=== PATIENT | female | born 1995 | race African-American/Black ===

== ENCOUNTER 2023-03-17 15:30 | Emergency (ER) | payer BC, SELFPAY ==
--- NOTE | 2023-03-17 16:06 | CRLHL7_ITS ---
For Patients: As a result of the Century Cures Act, medical imaging exams and procedure reports are released immediately into your electronic medical record. You may view this report before your referring provider. If you have questions, please contact your health care provider. INDICATION: Six weeks , pelvic pain. TECHNIQUE: Ultrasound OB pelvis transabdominal and transvaginal. Real-time esquivel-scale imaging of the pelvis was performed. COMPARISON: None. FINDINGS: Intrauterine gestation: Present. Embryo present: Yes. Embryo cardiac activity: Yes. 122 beats per minute. [place] rump Length: 0.7 cm. Sonographic gestational age: 6 weeks and 4 days. Sonographic estimated due date: 11/06/2023. Yolk sac: Normal. Perigestational hemorrhage: None. Ovaries and adnexae: Unremarkable. No suspicious lesions or fluid collections. Left corpus luteum. IMPRESSION: Single viable intrauterine with an estimated gestational age of 6 weeks and 4 days. No abnormalities seen. Dictated by Jose Oneal MD @ 03/17/2023 6:00:41 PM (Electronically Signed)
[2023-03-17 16:07] VITALS: BP 123/78; PULSE 70; RESP 16; TEMP 37.2; O2SAT 100; BMI 32.9
--- NOTE | 2023-03-17 17:41 | ED_ITS ---
HPI - Abdominal Pain General Chief Complaint: Abdominal Pain Stated Complaint: 6 weeks pre has cramps Time Seen by Provider: 03/17/23 16:07 History of Present Illness HPI narrative: This 27-year-old female reports that she is 6 weeks and comes in with lower abdominal pain that began yesterday. She does not report any vaginal bleeding or discharge. She has not had any fevers. Related Data Home Medications Medication Instructions Recorded Confirmed ondansetron 4 mg disintegrating mg PO 03/17/23 tablet sumatriptan succinate 50 mg tablet PO 03/17/23 Allergies Allergy/AdvReac Type Severity Reaction Status Date / Time magnesium Allergy Unknown unknown Verified 03/05/23 13:50 compazine Allergy Severe seizures Uncoded 03/05/23 13:50 Review of Systems Status of ROS Reports: 10 or more systems reviewed and unremarkable except as noted in History and below Narrative Constitutional: No fevers, no weight gain or loss. Eyes: No discharge. No vision changes. HENT: No congestion, no sore throat, no ear pain. Cardiovascular: No chest pain, no palpitations. Respiratory: No shortness of breath, no wheezes, no cough. Gastrointestinal: No vomiting, no diarrhea. Abdominal pain as described above. Genitourinary: No dysuria, no hematuria. Musculoskeletal: Normal range of motion. Skin: No rashes, no pruritis. Neurological: No dizziness, weakness, sensory change, speech change. Endo/Heme/Allergies: No bruising or bleeding. No polydipsia. Pysch: no suicidality, no anxiety, no insomnia. All other systems reviewed and are negative. [facility] Medical History (Updated 03/17/23 @ 17:44 by James Schwartz MD) Sinusitis ?J32.9 - Chronic sinusitis, unspecified (ICD-10) Exam Narrative: Exam Narrative: Constitutional: Well-developed, well-nourished, no acute distress. HEENT: Normocephalic, atraumatic. Neck: Normal range of motion. Nontender. Supple. Heart: Regular. No murmurs. Normal rate. Intact distal pulses. Lungs: Clear to auscultation. No chest discomfort. No wheezes, rhonchi, or rales. Abdomen: Normal bowel sounds. Diffuse tenderness across the lower abdomen. No rebound tenderness. Genitalia: Deferred. Back: No midline tenderness. Normal range of motion. Extremities: Normal range of motion. No injury. Skin: Intact. No rash. Warm. No erythema or pallor. Neurologic: No altered sensation. No weakness. Alert and oriented. Psychiatric: No suicidality. No anxiety or depression. No insomnia. Nursing notes and vitals signs are reviewed. Const: Vital Signs, click to edit/add: Vital Signs - 24 hr 03/17/23 16:07 Temperature 98.9 F Pulse Rate [Right Pulse Oximeter] 70 Respiratory Rate 16 Blood Pressure [Ri ght Upper Arm] 123/78 Pulse Oximetry 100 Oxygen Delivery Me thod Room Air Course Vital Signs Vital signs: Initial Vital Signs Temperature 98.9 F 03/17/23 16:07 Temperature Source Temporal Artery Scan 03/17/23 16:07 Pulse Rate 70 03/17/23 16:07 Pulse Rhythm Regular 03/17/23 16:07 Respiratory Rate 16 03/17/23 16:07 Blood Pressure 123/78 03/17/23 16:07 Blood Pressure Mean 93 03/17/23 16:07 Blood Pressure Position Sitting 03/17/23 16:07 Pulse Oximetry 100 03/17/23 16:07 Oxygen Delivery Method Room Air 03/17/23 16:07 Vital Signs Temperature 98.9 F 03/17/23 16:07 Pulse Rate 70 03/17/23 16:07 Respiratory Rate 16 03/17/23 16:07 Blood Pressure 123/78 03/17/23 16:07 Pulse Oximetry 100 03/17/23 16:07 Oxygen Delivery Method Room Air 03/17/23 16:07 Temperature 98.9 F 03/17/23 16:07 Pulse Rate 70 03/17/23 16:07 Respiratory Rate 16 03/17/23 16:07 Blood Pressure 123/78 03/17/23 16:07 Pulse Oximetry 100 03/17/23 16:07 Oxygen Delivery Method Room Air 03/17/23 16:07 MDM - Abdominal Pain MDM Narrative Medical decision making narrative: This patient reports abdominal pain at 6 weeks gestation. An ultrasound was done for transvaginal view of her uterus and ovaries. There is evidence of a normal intrauterine . There are no other findings that explain the patient's pain. She is not having any vaginal discharge and is not likely showing signs of miscarriage at this time. She does not have rebound tenderness but does report pain in her lower abdomen. She has been having normal bowel movements. She denies having any symptoms of dysuria. I did discuss further lab and imaging options with the patient which she declined at this time in a process of shared decision making. I did make her aware of signs or symptoms that would indicate need for return and re-evaluation. She did receive a prescription for Toradol which I explained can be given in the 1st couple trimesters but should be used just for occasional use as needed. Discharge Plan Discharge Clinical Impression: , Abdominal pain Condition: Stable Additional Instructions: Take medication as needed and indicated. Follow up with MD or return if worsening symptoms occur. Prescriptions: No Action sumatriptan succinate 50 mg tablet PO ondansetron 4 mg tablet,disintegrating PO Follow Up/Referrals: Provider,Not a Local [Primary Care Provider] - Stand Alone Forms: [employer] Info Instructions
[2023-03-17 18:00] VITALS: BP 123/78; PULSE 70; RESP 16; TEMP 37.2
== END 2023-03-17 18:00 | disposition home or self-care (01) ==
PROVIDERS: Emergency Provider Emergency Medicine Emergency Medical Services
DX: R10.30 Lower abdominal pain, unspecified (principal); Z3A.01 Less than 8 weeks gestation of pregnancy
CPT/HCPCS: 36415; 76817; 84702; 99284

== ENCOUNTER 2023-03-31 08:24 | Outpatient (CLI) | payer BC, SELFPAY ==
--- NOTE | 2023-03-31 08:45 | CRLHL7_ITS ---
For Patients: As a result of the Century Cures Act, medical imaging exams and procedure reports are released immediately into your electronic medical record. You may view this report before your referring provider. If you have questions, please contact your health care provider. INDICATION: Follow-up viability COMPARISON: 03/17/2023 TECHNIQUE: Real-time esquivel-scale imaging of the pelvis was performed. FINDINGS: Sonographic imaging demonstrates a single living intrauterine gestation. The embryo demonstrates a regular cardiac rate measuring 173 beats per minute. The embryo`s crown-rump length measurement of 2.1 cm corresponds to a gestational age of 8 weeks 5 days with a sonographic due date of 11/05/2023. There is a normal-appearing yolk sac. There are no gross abnormalities noted within the embryo at this early state of development. The gestational sac has a normal appearance. There is a 1.2 x 0.5 x 0.8 cm perigestational hemorrhage. The amount of fluid within the sac appears appropriate for gestational age. The cervix is closed. The myometrium appears normal. The ovaries are of normal size. Corpus luteal cyst left ovary. There are no suspicious fluid collections noted in the cul-de-sac. IMPRESSION: Single living intrauterine measures 8 weeks 5 days and sonographic due date 11/05/2023. Inferior subchorionic hemorrhage measuring 1.2 x 0.5 x 0.8 cm. Dictated by Marquis Monsivais MD @ 03/31/2023 11:17:09 AM (Electronically Signed)
== END 2023-03-31 08:25 | disposition home or self-care (01) ==
LOC: US 08:24
PROVIDERS: Visit Provider Advanced Practice Midwife
DX: Z34.91 Encounter for supervision of normal pregnancy, unspecified, first trimester (principal); Z3A.08 8 weeks gestation of pregnancy
CPT/HCPCS: 76817; 86592; 86703; 86704; 86706; 86762; 86787; 86803; 86850; 86900; 86901; 87086; 87340; 87491; 87591

== ENCOUNTER 2023-05-27 15:08 | Outpatient (CLI) | payer OTHER, SELFPAY ==
[2023-05-27 18:32] LABS: Bacterial Vaginosis* Not Detected (No Detected)
[2023-05-27 18:33] LABS: Candida glab/krus Not Detected (No Detected); Candida species Not Detected (No Detected); Trichomonas vaginalis Not Detected (No Detected)
== END 2023-05-27 15:09 | disposition home or self-care (01) ==
PROVIDERS: Visit Provider Advanced Practice Midwife
DX: Z34.92 Encounter for supervision of normal pregnancy, unspecified, second trimester (principal); Z3A.16 16 weeks gestation of pregnancy
CPT/HCPCS: 81513; 87086; 87481; 87661

== ENCOUNTER 2023-08-15 11:15 | Outpatient (CLI) | payer MEDICAID, SELFPAY ==
[2023-08-15 11:31] VITALS: BP 128/61; PULSE 85; TEMP 36.9
--- NOTE | 2023-08-15 12:44 | PC.OBNST ---
NST Note NST Note Start: 08/15/23 11:22 Freq: ONCE Status: Active Protocol: Document 08/15/23 12:41 RAJESH (Rec: 08/15/23 12:44 RAJESH [id number]) NST Note 3 Para (# of births) 1 EDC 11/09/23 Gestational Age In Weeks & Days 27 Weeks & 5 Days Patient Presented with Complaint(s) of Decreased movement Reactive Yes Appropriate for Gestational Age Yes SELWYN Vee RN Date 08/15/23 Reactive Yes Appropriate for Gestational Age Yes SELWYN Cardenas RN Date 08/15/23 OB NST charge Yes Complete NST Note via Write Note Yes The provider's electronic signature indicates the NST is reactive/appropriate for gestational age. *Note to provider: If an addendum is required, open the patient's chart and click on the note under the Nurse/Allied Health tab.
== END 2023-08-15 12:39 | disposition home or self-care (01) ==
LOC: OB OUT 11:17 → OB 11:21
PROVIDERS: Visit Provider Advanced Practice Midwife
DX: O36.8120 Decreased fetal movements, second trimester, not applicable or unspecified (principal); Z3A.27 27 weeks gestation of pregnancy
CPT/HCPCS: 59025; G0463

== ENCOUNTER 2023-08-20 16:52 | Outpatient (CLI) | payer MEDICAID, SELFPAY | END 2023-08-20 16:53 | disposition home or self-care (01) | LOC: NFLDREF 16:54 | PROVIDERS: Visit Provider Advanced Practice Midwife | DX: Z34.83 Encounter for supervision of other normal pregnancy, third trimester (principal) | CPT/HCPCS: 86592 ==

== ENCOUNTER 2023-08-25 08:49 | Outpatient (CLI) | payer MEDICAID, SELFPAY | END 2023-08-25 08:50 | disposition home or self-care (01) | LOC: NFLDREF 08-27 07:33 | PROVIDERS: Visit Provider Advanced Practice Midwife | DX: O99.810 Abnormal glucose complicating pregnancy (principal); Z3A.28 28 weeks gestation of pregnancy | CPT/HCPCS: 82951; 82952 ==

== ENCOUNTER 2023-09-19 22:30 | Outpatient (CLI) | payer MEDICAID, SELFPAY ==
[2023-09-19] VITALS (12 sets, daily range): BP systolic 133; BP diastolic 72; PULSE 72–93; TEMP 36.7; O2SAT 97–100
[2023-09-19] MEDS: LACTATED RINGERS 1000 ML 1,000 ML 1200 ML IV (23:13)
[2023-09-19] MEDS: ONDANSETRON 2 MG/ML inj 4 MG IV (23:13)
[2023-09-20] LABS: Amnisure Rom* Negative
--- NOTE | 2023-09-20 00:53 | PM.EN ---
Chart Event Note Chart Event Note: ED Provider Dr. Franco was asked to order Ondansetron from [facility] so patient is able to discharge home with medications as this provider does not have access to this.
--- NOTE | 2023-09-20 01:01 | PC.OBNST ---
NST Note NST Note Start: 09/19/23 22:43 Freq: ONCE Status: Active Protocol: Document 09/20/23 00:56 KALEB (Rec: 09/20/23 01:00 KALEB [id number]) NST Note 3 Para (# of births) 1 EDC 11/09/23 Gestational Age In Weeks & Days 32 Weeks & 6 Days Patient Presented with Complaint(s) of Nausea and vomiting Other Complaints Patient arrived with SO and children via wheelchair c/o nausea and vomiting as well as diarrhea accompanied by contractions. Pt reported to RN that when she was having a bout of emesis she did feel some liquid leaking out of her analisa area. Amnisure was collected and negative. After 1L of fluid and IV zofran patient is feeling better. Discharge order received from Nikky Lind CNM to go home. Reactive Yes Appropriate for Gestational Age Yes SELWYN Ruggiero RN Date 09/20/23 Reactive Yes Appropriate for Gestational Age Yes SELWYN Lind CNM Date 09/20/23 OB NST charge Yes Complete NST Note via Write Note Yes The provider's electronic signature indicates the NST is reactive/appropriate for gestational age. *Note to provider: If an addendum is required, open the patient's chart and click on the note under the Nurse/Allied Health tab.
== END 2023-09-20 01:11 | disposition home or self-care (01) ==
LOC: OB OUT 22:31 → OB 22:32
PROVIDERS: Visit Provider Advanced Practice Midwife
DX: O47.03 False labor before 37 completed weeks of gestation, third trimester (principal); Z3A.32 32 weeks gestation of pregnancy
CPT/HCPCS: 59025; 84112; G0463; J2405; J7120

== ENCOUNTER 2023-10-15 14:19 | Outpatient (CLI) | payer MEDICAID, SELFPAY | END 2023-10-15 14:20 | disposition home or self-care (01) | LOC: NFLDREF 10-17 09:43 | PROVIDERS: Visit Provider Advanced Practice Midwife | DX: Z34.93 Encounter for supervision of normal pregnancy, unspecified, third trimester (principal); Z3A.36 36 weeks gestation of pregnancy | CPT/HCPCS: 87081; 87653 ==

== ENCOUNTER 2023-10-19 23:05 | Outpatient (CLI) | payer BC, MEDICAID, SELFPAY ==
[2023-10-19 23:42] VITALS: BP 125/73; PULSE 83
[2023-10-19 23:43] VITALS: RESP 18; TEMP 36.8
[2023-10-19 23:56] LABS: Amnisure Rom* Negative
--- NOTE | 2023-10-20 00:39 | PC.OBNST ---
NST Note NST Note Start: 10/19/23 23:06 Freq: ONCE Status: Active Protocol: Document 10/20/23 00:37 AM (Rec: 10/20/23 00:39 AM [id number]) NST Note 3 Para (# of births) 1 EDC 11/09/23 Gestational Age In Weeks & Days 37 Weeks & 1 Days Patient Presented with Complaint(s) of Contractions/cramping,Leaking fluid Reactive Yes Appropriate for Gestational Age Yes RN Trevon RNC Date 10/20/23 Reactive Yes Appropriate for Gestational Age Yes RN Sofi RN Date 10/20/23 OB NST charge Yes Complete NST Note via Write Note Yes The provider's electronic signature indicates the NST is reactive/appropriate for gestational age. *Note to provider: If an addendum is required, open the patient's chart and click on the note under the Nurse/Allied Health tab.
== END 2023-10-20 00:25 | disposition home or self-care (01) ==
LOC: OB OUT 23:05 → OB 23:06
PROVIDERS: Visit Provider Advanced Practice Midwife
DX: O47.1 False labor at or after 37 completed weeks of gestation (principal); Z3A.37 37 weeks gestation of pregnancy
CPT/HCPCS: 59025; 84112; G0463

== ENCOUNTER 2023-10-20 19:33 | Outpatient (CLI) | payer BC, SELFPAY ==
[2023-10-20] MEDS: ACETAMINOPHEN 500 MG TABLET 1000 MG PO (19:56)
[2023-10-20 20:06] VITALS: BP 136/85; RESP 16; TEMP 36.6
[2023-10-20 20:07] VITALS: PULSE 82; O2SAT 98
[2023-10-20 20:08] LABS: Hematocrit 36.5 % (33.0-51.0); Mean Corpuscular HGB Conc 33 gm/dL (32-36); Mean Corpuscular Hemoglobin 28 pg (26-34); Mean Corpuscular Volume 85 fL (80-100); Platelet Count* 234 K/uL (140-440); Red Blood Count 4.28 m/uL (4.00-5.20); White Blood Count* 6.79 K/uL (4.50-11.00)
[2023-10-20 20:22] LABS: Slide Review Reflex No
[2023-10-20 20:32] LABS: Alanine Aminotransferase* 26 U/L (4-35); Aspartate Amino Transferase* 24 U/L (12-35); Blood Urea Nitrogen* 6 mg/dL (5-24); Creatinine* 0.4 mg/dL (0.5-1.5); Estimated Glomerular Filt Rate 138 ml/min
[2023-10-20 20:35] LABS: Total Protein Urine 10 mg/dL
[2023-10-20 20:37] LABS: Creatinine Urine 50.3 mg/dL
[2023-10-20 20:44] VITALS: BP 125/81
[2023-10-20] MEDS: METOCLOPRAMIDE 10 MG TABLET PO (21:00)
[2023-10-20 21:21] VITALS: BP 121/79
--- NOTE | 2023-10-24 10:26 | PC.OBNST ---
NST Note NST Note Start: 10/20/23 19:37 Freq: ONCE Status: Complete Protocol: Document 10/20/23 21:47 [email or web address] (Rec: 10/20/23 21:49 KALEB Desktop) NST Note 3 Para (# of births) 1 EDC 11/09/23 Gestational Age In Weeks & Days 37 Weeks & 1 Days Patient Presented with Complaint(s) of Headache Other Complaints Pt sent to center by Sarahy Sal for pre-e labs and serial blood pressures. Reactive Yes Appropriate for Gestational Age Yes SELWYN Ruggiero RN Date 10/20/23 Reactive Yes Appropriate for Gestational Age Yes SELWYN Wong RN Date 10/20/23 OB NST charge Yes Complete NST Note via Write Note Yes The provider's electronic signature indicates the NST is reactive/appropriate for gestational age. *Note to provider: If an addendum is required, open the patient's chart and click on the note under the Nurse/Allied Health tab.
== END 2023-10-20 21:40 | disposition home or self-care (01) ==
LOC: OB OUT 19:33 → OB 19:33
PROVIDERS: Visit Provider Advanced Practice Midwife
DX: O47.1 False labor at or after 37 completed weeks of gestation (principal); Z3A.37 37 weeks gestation of pregnancy
CPT/HCPCS: 36415; 59025; 82565; 82570; 84156; 84450; 84460; 84520; 85027; G0463; A9270

== ENCOUNTER 2023-10-30 06:03 | Outpatient (CLI) | payer BC, SELFPAY ==
[2023-10-30 06:27] VITALS: BP 139/78; PULSE 89
[2023-10-30 06:32] VITALS: TEMP 36.6
[2023-10-30 06:55] LABS: Amnisure Rom* Negative
[2023-10-30] MEDS: hydrOXYzine pamoate 25 MG CAPSULE 100 MG PO (09:54)
[2023-10-30] MEDS: MORPHINE 10 MG/ML inj IM (09:55)
== END 2023-10-30 10:35 | disposition home or self-care (01) ==
LOC: OB OUT 06:03 → OB 06:05
PROVIDERS: Visit Provider Advanced Practice Midwife
DX: O26.893 Other specified pregnancy related conditions, third trimester (principal); R51.9 Headache, unspecified; Z3A.37 37 weeks gestation of pregnancy
CPT/HCPCS: 84112; G0463; A9270; J2270

== ENCOUNTER 2023-10-30 15:39 | Inpatient (IN) | payer BC, SELFPAY ==
[2023-10-30] VITALS (41 sets, daily range): BP systolic 110–159; BP diastolic 55–80; PULSE 4–230; TEMP 36.7–36.9; O2SAT 80–100; BMI 38.5
[2023-10-30] MEDS: fentaNYL 100 MCG/2 ML inj 50 MCG IVP (18:43)
[2023-10-30] MEDS: LACTATED RINGERS 1000 ML 1,000 ML IV ×2 (19:19→20:17)
[2023-10-30] MEDS: ROPIVACAINE 0.2% 100 ml 100 ML 12 MG EPIDURAL (20:00)
[2023-10-30] MEDS: BUPIVACAINE 0.25% PF 10 ML 10 ML ML EPIDURAL (20:01)
--- NOTE | 2023-10-30 20:05 | PM.ANBPRC ---
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 Lives with: and daughter Pets: [place] Abuse: Denies past Special Diet: Denies Ok with a blood transfusion: yes Culture or holiness beliefs: denies RISK FACTORS Exercise Times/wk: home gym Depression/Anxiety: at 11-12 months BALA: 0 PHQ 9: 0 Seat Belt Use: Routinely Smoking: Denies past/present Alcohol/day: Denies while Caffeine: 1-2 cups a day Drug Use: Denies past/present Chicken Pox: Yes as a child MRSA: Denies What is your current living situation?: I presently have a place to live Problems where you live: no known problems In the past 12 months, utilities in danger of being shut off: no In past 12 months, lack of transportation kept you from medical appts, meetings, work, or getting things needed for daily living: no In the past 12 mos, have been you worried that your food would run out before you had money to buy more?: never true In the past 12 mos, the food you bought just didn't last and you didn't have money to buy more?: never true Smoking Status: Never smoker How often do you have a drink containing alcohol: never AUDIT-C Alcohol total score: 0 Non-prescribed substance use: denies use How often does anyone, including family, friends and others, physically hurt you: never How often does anyone, including family, friends and others, insult or talk down to you: never How often does anyone, including family, friends and others, threaten you with harm: never How often does anyone, including family, friends and others, scream or curse at you: never Little interest or pleasure in doing things: not at all Feeling down, depressed, or hopeless: not at all Meds Home Medications and Allergies Home Medications ?Medication ?Instructions ?Recorded ?Confirmed ?Type vits no.126-ferrous fum 1 tab PO DAILY 03/31/23 10/30/23 History 28 mg iron-folic acid 800 mcg tablet (Classic ) ferrous sulfate 325 mg (65 mg 325 mg PO DAILY 10/20/23 10/30/23 History iron) tablet (iron) Allergies Allergy/AdvReac Type Severity Reaction Status Date / Time prochlorperazine Allergy Mild Shakiness Verified 10/30/23 14:53 [From Compazine] magnesium Allergy Unknown unknown Verified 10/30/23 14:53 tree nut Allergy Unknown Hives Verified 10/30/23 14:53 Results Vital Signs Vital Signs: Last Vital Signs Pulse 112 H 10/30/23 20:04 BP 137/73 10/30/23 20:04 Pulse Ox 98 10/30/23 20:02 Weight: 101.695 kg Height: 162.56 cm Anesthesia Procedures Epidural Insertion Patient Location: OB Start Time: 19:20 Stop Time: 20:05 Start Date: 10/30/23 Stop Date: 10/30/23 Reason for Block: procedure for pain Patient Position: sitting Performed By: Yury Vogel Preanesthetic Checklist: IV checked, risks and benefits discussed, monitors and equipment checked, pre-op evaluation, timeout performed and anesthesia consent Prep: chlorhexidine gluconate Monitoring: blood pressure monitoring, continuous pulse oximetry and heart rate Approach: midline Vertebral Space: lumbar (1-5) Epidural Technique: AGNES saline Needle Type: Tuohy needle Injection Technique: continuous catheter Needle gauge: 17 Needle Length (cm): 10 cm Needle Insertion Depth (cm): 8 Catheter Gauge: 19 Catheter Type: multi-orifice Catheter at skin depth (cm): 14 Test Dose Result: negative and lidocaine 1.5% with epinephrine 1 to 200,000
[2023-10-30] MEDS: CALCIUM CARBONATE 500 MG CHEW PO (20:45)
--- NOTE | 2023-10-30 23:30 | P.LDBA_ITS ---
Subjective History of Present Illness Time Seen by Provider: 16:00 Date Seen: 10/30/23 Narrative: Solis is being admitted to Labor and Delivery for labor. She is a 28 year old at 38.4 weeks gestation. Her full history and physical was dictated by Sarahy Sal CNM on 10/20/23. Please see this for details. She presented earlier in the day. At that time she was slightly more dilated than she had been in the clinic 2 days ago but did not make cervical change in the 2 hours she was here. She was given morphine and Vistaril in an attempt to get her some sleep. She did not sleep for very long before coming back for continued contractions and pain. She was found to have made a small amount of cervical change at that time. She was admitted for labor and support. She is planning an unmedicated water . She is supported by her Richar. Specific Issues/Plans : Richar Its a boy-Yonas H&P 10/20/23 by Sarahy Sal CNM [employer] Helper: Eunice Radford 1. Migraines. Taking Imitrex, will add Reglan. MFM consult: ok to use propranolol, can consider gabapentin with shared decision making Level 2 US at 18-20 weeks Growth US Q 6 weeks if taking propranolol (not currently taking). Has Neurology F/U in June 2. Nausea and vomiting. Taking zofran. 3. Echogenic intracardiac focus. Normal NIPT. No further f/u recommended. 4. Bilateral urinary tract dilation (>7mm). F/U with MFM in 4-6 weeks-repeat scheduled. Grandfather and aunt had renal disease. Recommended US and peds urology consult after delivery. MFM US 07/22/23: Rt renal pelvis 8.5mm, Lt renal pelvis 8.2mm, MVP 5.4cm MFM US 08/20/23: per pt report (waiting for official report) Lt pelvis 11.2, Rt pelvis 7.5 Mat21 negative. Serial growth and kidneys every 4 weeks w/MFM. Follow-up ultrasound 09/16/2023: Consider Peds urology referral and consultation if persists into 3rd trimester: renal US at 8hrs of life prior to leaving the hospital if , renal US at 2 weeks of life and f/u with peds urology. 5. Failed 1 hr GTT (174), 3 hr passed but not by much. Encouraged dietary changes and random BS check. Declines nutrition at this time. 6. Anemia at 28 weeks Hgb 10.9 recommended iron supplement. Hgb 11.8 at 34wks. COVID: initial series, boosted once Flu: 04/07/2023 TDAP: 09/03/2023 32wk Mental Health: 34wk Hgb: 11.8 OB - Problem Based A/P Additional Plan (1) Pain during labor: Status: Acute (2) Dilation of renal pelvis of fetus: Status: Acute Plan ASSESSMENT:? at 38.4 weeks gestation? Spontaneous labor at term GBS negative? complicated by: Bilateral urinary tract dilation (>7mm), failed 1hr GTT but passed 3 hr test, anemia resolved by 34 weeks. Blood type:?O+ ?? PLAN:? 1. Desires water . Consent signed. Hep C negative.? 2. Candidate for analgesia of choice. Planning unmedicated .? 3. Encourage physiologic and coping strategies. 4. Anticipate ? 5. Expectant management at this time.? 6. Consider IV if desires IV pain medication for early labor coping. 7. Intermittent auscultation after reactive tracing. Delivery/Labor/Induction Plan Plan: expectant management OB Result Labs Blood Type: O (+) positive Rubella: immune RPR/VDLR: nonreactive GBS Status: negative HBsAG: negative OB Exam Physical Exam Vital signs: Pulse BP Pulse Ox 80 123/58 L 97 10/30/23 23:19 10/30/23 23:19 10/30/23 22:37 Narrative: Psychiatric:? Alert and oriented x3? HEENT:? Normocephalic, atraumatic? Neck:? Supple without adenopathy or thyromegaly? Lungs:? Clear to auscultation bilaterally? Heart:? Regular rate and rhythm, no murmur, rub or gallop? Abdomen:? Soft, nontender, and gravid? Extremities:? No edema or erythema? Detailed Labor and Delivery Exam Patient Gravid: Yes Dilation (cm): 3 Effacement (%): 70 Cervix position: posterior Consistency: soft Contraction intensity: Strong/Firm Fetus (Single) Station: -2 Amniotic Membrane Status: intact Heart Rate Baseline: 130 Monitor Accelerations: Present Monitor Decelerations: None Fci Variability: Moderate (6-25)
--- NOTE | 2023-10-30 23:41 | PM.OBPNL ---
Subjective Time Seen by Provider: 20:00 Date Seen: 10/30/23 Narrative: Solis has been slowly progressing and encouraging physiologic . She was starting to feel some rectal pressure and decided to get an epidural. She has an effective epdirual in place at this time and is comfortalbe but is still able to feel some pressure. After epidural placement she was found to be 6cm/90%/-2 with a bulging bag. She is being encouraged to change positions and take a nap as she is exhausted. Will consider AROM after she had had time to rest. 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 at 38.4 weeks gestation? Spontaneous labor at term GBS negative? Reassuring FHT with continuous monitoring after epidural placement. complicated by: Bilateral urinary tract dilation (>7mm), failed 1hr GTT but passed 3 hr test, anemia resolved by 34 weeks. Blood type:?O+ ?? PLAN:? 1. Routine intrapartum cares as ordered. Continue with expectant management ?? 2. Candidate for analgesia of choice. Epidural now in place. 3. Encourage physiologic with position changes. 4. Expectant management at this time.? 5. Monitoring per policy, continuous with epidural ? 6. Anticipate ?
[2023-10-31] VITALS (33 sets, daily range): BP systolic 120–142; BP diastolic 57–95; PULSE 68–94; RESP 16–18; TEMP 36.4–37.6; O2SAT 92–100
[2023-10-31] MEDS: ONDANSETRON 2 MG/ML inj 4 MG IV (00:07)
[2023-10-31] MEDS: LACTATED RINGERS 1000 ML 1,000 ML 1125 ML IV (00:27)
[2023-10-31] MEDS: ROPIVACAINE 0.2% 100 ml 100 ML 12 MG EPIDURAL (01:40)
[2023-10-31] MEDS: fentaNYL 100 MCG/2 ML inj 50 MCG EPIDURAL (02:00)
[2023-10-31] MEDS: LIDOCAINE 2% (PF) 5 ML VIAL 4 ML EPIDURAL (02:00)
[2023-10-31] MEDS: OXYTOCIN 30 unit/500 ML in NS 30 UNIT/500 ML BAG 300 UNIT IVPB (02:40)
--- NOTE | 2023-10-31 02:56 | W.PM.OBVAGDE ---
OB Procedure Vag Delivery Mother Details Mother Details: The patient is a 28 year-old, 2, Para 1, admitted on 10/30/23 at 38.4 Days gestation. : 2 Para: 2 Weeks Gestation: 38.5 Admission Date: 10/30/23 Additional Details Amniotic Membrane Status: AROM Amniotic Membrane Rupture Date: 10/30/23 Amniotic Membrane Rupture Time: 21:12 Amniotic Membrane Fluid Description: Clear Analgesia/Anesthesia Type: Epidural Waterbirth: No Pitcoin: Yes ([facility] only) Intrapartal Events: Labor Augmentation Delivery augmentation: rupture of membranes Labor Onset: 20:40 Complete: 00:44 Pushin:54 Heart: heart tones during second stage were category 2. Just before pushing there was a prolonged deceleration. Uncertain as to how long as there was a large period where we were unable to find FHTs until a FSE was placed. This occurred over a 5.5 min period. She continued to have recurrent variable decelerations with pushing but maintained good variable and + accels. With there was a decrease to the 60's for about 2 minutes before delivery. Delivery Details Delivery Date: 10/31/23 Delivery Time: 02:38 Route of delivery: Gender: Male Infant Viability: Alive; Heart Rate Present Position at Delivery: OA Delivery Details: Patient was admitted for labor and progressed with AROM for augmentation. AROM noted at 2112 with clear fluid. Patient was complete at 0044 and pushing at 0054. of a viable male at 0238 with tug of war in the bed. Vertex delivered OA. No shoulder. Nuchal cord x1 that was summersaulted and reduced after delivery. Body delivered easily and without incident. Infant passed to mothers abdomen with a vigorous cry. Cord was clamped and cut at about 1 minutes for lack or respiratory effort. He was brought to the warmer and given about 30 seconds of PPV before he began breathing on his own. APGARS were 5 at one minute and 9 at five minutes respectively. Mouth was bulb suctioned. Intact placenta with a 3 vessel cord delivered spontaneously at 0243. Fundus firm. An intact perineum identified and repaired in typical fashion. QBL 300 cc. Mother and baby stable; mother plans to breastfeed. Infant weight pending.? 1 Minute Interval Total Score: 5 5 Minute Interval Total Score: 9 Additional Details Shoulder Dystocia: No Placenta Delivery Time: 02:43 Placental Delivery Description: Spontaneous Procedure Done: Global Blood Loss: 300 Laceration: None Episiotomy Description: None Blood Loss Measurement Type: QBL Bakri Used: No Sponge/Need Count Correct: Yes Cord Vessel Description: 3 Vessels, Nuchal Cord and Delivered through Event Summary Status: Mother and were stable after delivery. Disposition: floor
[2023-10-31] MEDS: IBUPROFEN 600 MG TABLET PO ×3 (03:30→18:43)
[2023-10-31] MEDS: ACETAMINOPHEN 500 MG TABLET 1000 MG PO ×3 (08:18→20:49)
[2023-10-31] MEDS: DOCUSATE SODIUM 100 MG CAPSULE PO (08:19)
--- NOTE | 2023-10-31 13:20 | PM.ANPOST ---
Post Anesthesia Note Post Anesthesia Note Patient seen: Inpatient Respiratory Status: adequate Cardiovascular Status: adequate Mental Status: baseline Pain: adequate Temp: baseline Anesthetic awareness: N/A Complications: none Follow care: none
[2023-10-31] MEDS: LANOLIN CREAM 1 APPLIC TOPICAL (15:00)
[2023-11-01 01:09] VITALS: BP 126/77; PULSE 76; RESP 16; TEMP 36.8; O2SAT 97
[2023-11-01] MEDS: IBUPROFEN 600 MG TABLET PO (06:19)
[2023-11-01 08:36] LABS: Hemoglobin* 10.9 gm/dL (12.0-16.0)
--- NOTE | 2023-11-01 08:36 | PM.OBDSVD1 ---
DS: Providers Provider Time Seen by Provider: 08:30 Date Seen: 11/01/23 Date of admission: 10/30/23 15:39 Primary care physician: Not a Local Provider Admitting Clinician: Tara Sal CNM Attending Physician on discharge: Tara Sal CNM DS: Diagnosis Discharge Diagnosis (1) (normal spontaneous vaginal delivery): Status: Acute Exam Narrative: Exam Narrative: GENERAL APPEARANCE:? normal affect, alert, no distress MOOD:? appropriate CHEST:? clear to auscultation HEART:? regular rate and rhythm ABDOMEN:? soft, non-tender the uterine fundus is At Umbilicus, Midline and is appropriate for the stage of recovery. she currently has a full bladder EXTREMITIES:? normal and trace edema Const: Vital Signs, click to edit/add: Vital Signs - 24 hr 10/31/23 08:50 10/31/23 13:18 10/31/23 16:11 Temperature 97.6 F 98.0 F 98.1 F Pulse Rate [Pulse Oximeter] 68 74 91 Respiratory Rate 18 18 18 Blood Pressure [Ri ght Arm] 132/79 123/77 127/76 Pulse Oximetry 98 96 97 Oxygen Delivery Me thod Room Air Room Air Room Air 10/31/23 19:58 11/01/23 01:09 Temperature 97.8 F 98.3 F Pulse Rate [Pulse Oximeter] 85 76 Respiratory Rate 16 16 Blood Pressure [Ri ght Arm] 133/82 126/77 Pulse Oximetry 98 97 Oxygen Delivery Me thod Room Air Room Air OB - DS: Summary Hospital Course Hospital Course: Solis is a 28 y.o. G 3 P 2011 who was admitted [facility] for active labor.? She had a NVD that was uncomplicated. The patient feels well.? The pain is well controlled with current medications.? She has no new complaints.? She is breast feeding and reports things are going well. the patient has done well.? Vitals have been stable.? She has remained afebrile.? Has a good appetite, is tolerating a general diet.? She is voiding without difficulty.? She is passing gas and has not had a bowel movement.? She is ambulating and denies any dizziness.? Has small amount of rubra lochia. She did pass one golf ball size clot this morning with no increase in bleeding afterwards. She is planning depo for prevention.? ?? Problems: 1. Migraines. Taking Imitrex, will add Reglan. MFM consult: ok to use propranolol, can consider gabapentin with shared decision making Level 2 US at 18-20 weeks Growth US Q 6 weeks if taking propranolol (not currently taking). Has Neurology F/U in June 2. Nausea and vomiting. Taking zofran. 3. Echogenic intracardiac focus. Normal NIPT. No further f/u recommended. 4. Bilateral urinary tract dilation (>7mm). F/U with MFM in 4-6 weeks-repeat scheduled. Grandfather and aunt had renal disease. Recommended US and peds urology consult after delivery. MFM US 07/22/23: Rt renal pelvis 8.5mm, Lt renal pelvis 8.2mm, MVP 5.4cm MFM US 08/20/23: per pt report (waiting for official report) Lt pelvis 11.2, Rt pelvis 7.5 Mat21 negative. Serial growth and kidneys every 4 weeks w/MFM. Follow-up ultrasound 09/16/2023: Consider Peds urology referral and consultation if persists into 3rd trimester: renal US at 8hrs of life prior to leaving the hospital if , renal US at 2 weeks of life and f/u with peds urology. 5. Failed 1 hr GTT (174), 3 hr passed but not by much. Encouraged dietary changes and random BS check. Declines nutrition at this time. 6. Anemia at 28 weeks Hgb 10.9 recommended iron supplement. Hgb 11.8 at 34wks. ? ?? plan:? Discharge home with baby.? Follow up in 2 weeks and 6 weeks.? , may see if needed? Hgb pending. Iron supplement ordered orally every other day? Labs WNL or stable with trending? Discharge home with BP cuff if does not already have one? Follow up in 3-5 days? Call for signs/symptoms of preeclampsia? ? Peripartum Data Infant delivery method: Vaginal Laceration description: None Episiotomy description: None complications: none Infant Gender: Male Discharge Plan: Home Status at Discharge Overall status at discharge: patient is progressing back to baseline Time Spent with Patient Time attestation: Total time spent providing and/or coordinating discharge services: Time spent: Less than 30 minutes Discharge Plan Discharge Disposition: Home, Self-Care Date of Admission: 10/30/23 15:39 Attending Provider on Discharge: Bryanna Hill Primary Care Provider: Provider,Not a Local Condition: Stable Anticipated Discharge Date/Time: 11/01/23 11:00 Discharge Medications: New acetaminophen 500 mg Tablet 1,000 mg PO Q6H PRNQty: 60 0RF docusate sodium 100 mg Capsule 100 mg PO DAILY Qty: 60 0RF ibuprofen 600 mg Tablet 600 mg PO Q6H PRNQty: 60 0RF Continued Classic 28 mg iron- 800 mcg tablet 1 tab PO DAILY ferrous sulfate [iron] 325 mg (65 mg iron) tablet 325 mg PO DAILY Discharge Orders: Discharge Order (Routine); Ordered 11/01/23 Ordered By: Bryanna Hill Patient Education: OB Vaginal/Breast Feeding Activity Level: Activity as Tolerated Discharge Diet: Regular Follow Up Appointments: Provider,Not a Local [Primary Care Provider] - Forms: [facility] Info Instructions
[2023-11-01 09:00] VITALS: BP 131/73; PULSE 87; RESP 16; TEMP 36.8
[2023-11-01] MEDS: DOCUSATE SODIUM 100 MG CAPSULE PO (09:08)
[2023-11-01] MEDS: ACETAMINOPHEN 500 MG TABLET 1000 MG PO (09:08)
[2023-11-03 00:55] LABS: Rapid Plasma Reagin (RPR) Non Reactive (Non Reactive)
== END 2023-11-01 12:25 | disposition home or self-care (01) | DRG 560 ==
LOC: OB OUT 15:40 → OB 15:40
PROVIDERS: Admitting Provider Advanced Practice Midwife; Visit Provider Advanced Practice Midwife
DX: O35.EXX0 Maternal care for other (suspected) fetal abnormality and damage, fetal genitourinary anomalies, not applicable or unspecified (principal); O76 Abnormality in fetal heart rate and rhythm complicating labor and delivery; G43.909 Migraine, unspecified, not intractable, without status migrainosus; O99.814 Abnormal glucose complicating childbirth; O99.02 Anemia complicating childbirth; D64.9 Anemia, unspecified; Z37.0 Single live birth; Z3A.38 38 weeks gestation of pregnancy
CPT/HCPCS: 01967; 36415; 85018; 86592; A9270; J0665; J2405; J2795; J3010; J7120

== ENCOUNTER 2023-11-07 13:14 | Outpatient (CLI) | payer BC, SELFPAY ==
--- NOTE | 2023-11-07 16:15 | W.PM.LAC.MC ---
Consult Note - Mom Date of Visit Date of visit: 11/07/23 client support consultant: Luisa Saenz Visit Code: Visit Patient's Information Phone number: [phone] : 2 Para: 2 Allergies prochlorperazine [From Compazine] Allergy (Mild, Verified 10/30/23 14:53) Shakiness magnesium Allergy (Unknown, Verified 10/30/23 14:53) unknown tree nut Allergy (Unknown, Verified 10/30/23 14:53) Hives Mother's Medical History: Medical History (Updated 11/05/23 @ 00:00 by Background Daemon) Sinusitis ?J32.9 - Chronic sinusitis, unspecified (ICD-10) Delivery Information Delivery type: Vaginal Weeks Gestation: 38+5 Gestational Age: AGA Weight: 3.615 kg Discharge Weight: 3.572 kg Baby's Information Medications: None Baby's Age at Visit: 7 days Baby's Provider or Clinic: [facility] Jaundice: No Reason for Consult Reason for Consult: Baby hasn't latched to left breast since left hospital, today also wouldn't latch to right breast. Mom feeling plugged duct on left side. Past Experience Past Experience: Yes Current Frequency of Day Feedings: every 2 hours Frequency of Night Feedings: every 2 hours, maybe one 4 hr stretch last night per dad Both Breasts: Yes (attempts) Suck: strong when latches Latch: wide and deep, mom feels good when he does latch Length of Time: 20-30 minutes, usually just on the right side though Goals: at least 1 year Pumping Pumping: Yes Quantity Pumped: 2.5 oz from left side Supplementing EMB Supplement: Yes (takes 2-2.5 oz in about 10 minutes) Formula Supplement: No Baby Elimination Number of Wet Diapers a Day: 6 or more Number of BM a Day: 6 or more, yellow, seedy Breast/Nipple Condition Engorgement: Yes Interventions for Engorgement: Pump (Has a hand pump) Maternal Nipple Condition - Left: Common Nipple and Cracking/ Fissures Maternal Nipple Condition - Right: Common Nipple Sore Nipples: Yes (left side) Interventions for Sore Nipples: Lansinoh and Expressed Breast Milk Onsite Pre-Feed weight: 3.642 kg Post-Feed weight: 3.742 kg Milk Transferred (mL): 100 Pre-Nursing Left Nipple: Crusting/Scabs Pre-Nursing Right Nipple: Within Normal Limits Post-Nursing Left Nipple: Within Normal Limits Post-Nursing Right Nipple: Within Normal Limits Assessments/Interventions Assessments/Interventions: Worked with mom and baby to get baby latched using asymmetric latch technique in cross cradle position. Baby needed coaching to stay on right breast with wide, deep latch. A little fussy, but once mom had her letdown, baby nursed with a strong, rhythmic suck and lots of audible swallows. Natural pauses noted and pointed out to mom this is normal behavior in nursing . Mom reports comfortable latch. Baby nursed for 15 minutes and then got sleepy. Used same technique on left breast, and again baby needed coaching to get on left side, but stayed on for 10 minutes. Mom reported relief on left side and felt milk removal. Nipple pain tolerable after feeding. Discussed nipple care: EBM after feeding, nipple cream to heal sore on left nipple, and soothies. Discussed wide deep latch allows nipple to heal and allows more milk transfer for baby. Discussed pumping to relieve fullness if needed while having plugged ducts. Father of baby asking how to help support his with rest and nutrition so ideas shared for this with fluid and snacks while nursing and then resting as able. Time spent with mom, dad and baby: 55 minutes Meds Home Medications and Allergies Home Medications ?Medication ?Instructions ?Recorded ?Confirmed ?Type vits no.126-ferrous fum 1 tab PO DAILY 03/31/23 10/30/23 History 28 mg iron-folic acid 800 mcg tablet (Classic ) ferrous sulfate 325 mg (65 mg 325 mg PO DAILY 10/20/23 10/30/23 History iron) tablet (iron) Allergies Allergy/AdvReac Type Severity Reaction Status Date / Time prochlorperazine Allergy Mild Shakiness Verified 10/30/23 14:53 [From Compazine] magnesium Allergy Unknown unknown Verified 10/30/23 14:53 tree nut Allergy Unknown Hives Verified 10/30/23 14:53
== END 2023-11-07 13:15 | disposition home or self-care (01) ==
PROVIDERS: Visit Provider Obstetrics & Gynecology
DX: Z39.1 Encounter for care and examination of lactating mother (principal)
CPT/HCPCS: G0463